=== PATIENT | male | born 1955 | race Caucasian/White ===

== ENCOUNTER 2019-05-14 22:13 | Emergency (ER) | payer OTHER ==
[2019-05-14] MEDS ORDERED: Lidocaine 2% w/Epinephrine 1:200K 20 ML VIAL ONE (23:29)
[2019-05-14] MEDS ORDERED: Adacel (T-DAP) 0.5 ML SYRINGE ONE (23:42)
[2019-05-14] MEDS ORDERED: Lidocaine 1% 20 ML MDV ONE (23:51)
[2019-05-15] MEDS ORDERED: Sterile Water Irrigation 250 ML BOT ONE (00:38)
== END 2019-05-15 00:50 | disposition home or self-care (01) ==
LOC: MADERS 22:13
DX: S61.411A Laceration without foreign body of right hand, initial encounter (principal); S81.812A Laceration without foreign body, left lower leg, initial encounter; Z79.4 Long term (current) use of insulin; Z79.82 Long term (current) use of aspirin; Z79.899 Other long term (current) drug therapy; W26.8XXA Contact with other sharp object(s), not elsewhere classified, initial encounter
CPT/HCPCS: 12004; 90471; 90715; J2001

== ENCOUNTER 2019-05-17 15:08 | Emergency (ER) | payer OTHER ==
[~2019-05-17 15:08] MED LIST: Sodium Chloride 0.9% 100 ML BAG ONE
--- NOTE | 2019-05-17 15:59 | RAD ---
Left lower leg 2 views HISTORY: Laceration. Cellulitis. FINDINGS: Tibia and fibula are intact. Soft tissue swelling over the lateral malleolus. Vertical scre en artifact on the frontal view. Soft tissue irregularity over the anterior aspect of the lower sánchez may represent the historically stated laceration. No radiopaque or soft tissue gas are apparent. IMPRESSION: Soft tissue laceration. No retained metallic foreign bodies or other complication evident . Soft tissue swelling over the lateral malleolus.
[2019-05-17] MEDS ORDERED: cefTRIAXone\\ROCEPHIN 1 GM VIAL ONE (16:20)
[2019-05-17 16:33] LABS: Anion Gap 17 mmol/L (10-20); BUN (Urea Nitrogen) 20 mg/dL (8.4-25.7); Calc. Creatinine Clearance 0 mL/min (70-130); Calcium 8.9 mg/dL (7.8-10.44); Carbon Dioxide 22 mmol/L (23-31); Chloride 103 mmol/L (98-107); Estimated GFR-MDRD 64; Glucose 198 mg/dL (80-115); Potassium 4.6 mmol/L (3.5-5.1); Sodium 137 mmol/L (136-145)
[2019-05-17 16:37] LABS: Eosinophils 1 % (0-10); Hemoglobin 13.5 g/dL (14.0-18.0); Lymphocytes 17 % (21-51); MDiff Complete? YES; Mean Corpuscular HGB CONC 32.2 g/dL (32.0-36.0); Mean Corpuscular Hemoglobin 28.3 pg (27.0-31.0); Mean Corpuscular Volume 87.7 fL (78.0-98.0); Monocytes 8 % (0-10); Neutrophil 65 % (42-75); Platelet Count 236 thou/uL (130-400); Platelet Morphology Comment Appears Adequate; RBC Distribution Width 11.9 % (11.5-14.5); RBC Morphology Normal; Reactive Lymphocytes 9 % (0-10); Red Blood Cell (RBC) Count 4.79 mill/uL (4.70-6.10); White Blood Cell (WBC) Count 7.9 thou/uL (4.8-10.8)
== END 2019-05-17 17:54 | disposition short-term general hospital (02) ==
LOC: MADERS 15:08
DX: L03.116 Cellulitis of left lower limb (principal); E10.9 Type 1 diabetes mellitus without complications; E03.9 Hypothyroidism, unspecified; E78.5 Hyperlipidemia, unspecified; Z79.899 Other long term (current) drug therapy; Z79.82 Long term (current) use of aspirin
CPT/HCPCS: 36415; 80048; 83605; 85025; 87040; 87070; 87077; 87186; 87205; 96365; J0696; J3370; J3490; J7050

== ENCOUNTER 2019-07-11 12:11 | Outpatient (CLI) | payer OTHER ==
[2019-07-11 12:34] LABS: Bilirubin Small (Negative); Blood, Urine Small (Negative); Clarity Clear (Clear); Glucose, Urine (Dipstick) >=1000 mg/dL (Negative); Leukocyte Negative (Negative); Nitrite Positive (Negative); Protein, Urine (Dipstick) 100 mg/dL (Neg-Trace); Urobilinogen 0.2 mg/dL (Less than 2)
[2019-07-11 12:54] LABS: Bacteria/HPF 2+ HPF (None Seen); RBC/HPF 0-3 HPF (0-3); Squamous Epithelial 0-3 HPF (0-3); WBC/HPF Greater Than 50 HPF (0-3)
[2019-07-11 13:20] LABS: Band 2 % (5-11); Hemoglobin 14.1 g/dL (14.0-18.0); Lymphocytes 3 % (21-51); MDiff Complete? YES; Mean Corpuscular HGB CONC 32.7 g/dL (32.0-36.0); Mean Corpuscular Hemoglobin 28.7 pg (27.0-31.0); Mean Platelet Volume 8.5 fL (7.4-10.4); Monocytes 3 % (0-10); Neutrophil 89 % (42-75); Platelet Count 217 thou/uL (130-400); Platelet Morphology Comment Appears Adequate; RBC Distribution Width 12.3 % (11.5-14.5); RBC Morphology Normal; Reactive Lymphocytes 3 % (0-10); Red Blood Cell (RBC) Count 4.91 mill/uL (4.70-6.10); White Blood Cell (WBC) Count 12.1 thou/uL (4.8-10.8)
== END 2019-07-11 12:12 | disposition home or self-care (01) ==
LOC: MADLABBHPM 12:11
PROVIDERS: ATTEND Family Medicine
DX: R50.9 Fever, unspecified (principal)
CPT/HCPCS: 36415; 81001; 85025; 87077; 87086